=== PATIENT | female | born 1985 | race Caucasian/White ===

== ENCOUNTER 2016-10-31 01:27 | Emergency (ER) | payer SELFPAY | END 2016-10-31 03:30 | disposition home or self-care (01) | LOC: ER 01:27 | DX: R07.89 Other chest pain (principal); R11.0 Nausea; Z90.49 Acquired absence of other specified parts of digestive tract; Z79.899 Other long term (current) drug therapy; Z88.0 Allergy status to penicillin; Z88.1 Allergy status to other antibiotic agents | CPT/HCPCS: 36415; 96374; 96375; J2550 ==